=== PATIENT | female | born 1955 | race Caucasian/White ===

== ENCOUNTER 2018-02-01 05:10 | Day surgery (SDC) | payer OTHER ==
[~2018-02-01 05:10] MED LIST: ENALAPRIL MALEA10 MG PO
== END 2018-02-01 09:15 | disposition home or self-care (01) ==
LOC: AMB-ENDOS 05:10
DX: C20 Malignant neoplasm of rectum (principal); D64.89 Other specified anemias; E11.9 Type 2 diabetes mellitus without complications

== ENCOUNTER 2019-04-04 05:55 | Day surgery (SDC) | payer OTHER | END 2019-04-04 14:35 | disposition home or self-care (01) | LOC: AMB-ENDOS 05:55 | DX: K57.32 Diverticulitis of large intestine without perforation or abscess without bleeding (principal) ==

== ENCOUNTER 2020-06-04 06:00 | Day surgery (SDC) | payer OTHER | END 2020-06-04 11:00 | disposition home or self-care (01) | LOC: AMB-ENDOS 06:00 | PROVIDERS: ATTEND Colon & Rectal Surgery | DX: D12.2 Benign neoplasm of ascending colon (principal); Z20.828 Contact with and (suspected) exposure to other viral communicable diseases ==